=== PATIENT | female | born 1970 | race Caucasian/White ===

== ENCOUNTER 2016-12-07 20:32 | Observation (INO) | payer OTHER ==
[2016-12-07 20:58] LABS: BASOPHIL# 0.1 X 10^3uL (0.0-0.1); BASOPHILS 0.6 % (0.0-2.0); EOSINOPHILS# 0.1 X 10^3uL (0.0-0.4); HEMOGLOBIN 12.9 g/dL (12.0-16.0); LYMPHOCYTES 14.6 % (20.0-40.0); LYMPHOCYTES# 1.4 X 10^3uL (0.8-3.8); MEAN CELL VOLUME 82.1 fL (80.0-100.0); MEAN CORPUS. HGB CONCENTRATION 33.8 g/dL (32.0-36.0); MEAN CORPUSCULAR HEMOGLOBIN 27.8 pg (29.0-35.0); MEAN PLATELET VOLUME 8.1 fL (7.4-10.4); MONOCYTES 10.8 % (2.0-10.0); MONOCYTES# 1.1 X 10^3uL (0.2-1.0); NEUTROPHILS# 7.2 X 10^3uL (2.6-6.7); PLATELET COUNT 394 X 10^3uL (130-440); RED BLOOD COUNT 4.63 X 10^6uL (4.20-6.10); WHITE BLOOD COUNT 9.9 X 10^3uL (3.9-10.7)
[2016-12-07 21:01] LABS: BLOOD UREA NITROGEN 10 mg/dL (7-17); CALCIUM 8.8 mg/dL (8.4-10.2); CHLORIDE 99 mmol/L (98-107); EST GLOMERULAR FILTRATION RATE > 60 mL/min; GLUCOSE 97 mg/dL (70-100); POTASSIUM 3.9 mmol/L (3.5-5.1); SODIUM 135 mmol/L (137-145)
[2016-12-07] MEDS ORDERED: cefTRIAXone SODIUM 1,000 MG/10 ML VIAL ONE (21:01)
[2016-12-07] MEDS ORDERED: AZITHROMYCIN 250 MG TABLET PO ONE (21:02)
[2016-12-07] MEDS ORDERED: NORMAL SALINE 1,000 ML IV ONE (21:02)
[2016-12-07] MEDS ORDERED: IPRATROPIUM/ALBUTEROL 0.5/3 MG 3 ML AMPUL.NEB INHALATION ONE ×2 (21:02→22:36)
[2016-12-07] MEDS ORDERED: ACETAMINOPHEN 325 MG TABLET PO ONE (21:02)
[2016-12-07] MEDS ORDERED: IBUPROFEN 600 MG TABLET PO ONE (21:02)
[2016-12-07] MEDS ORDERED: NORMAL SALINE MINI-BAG+ 100 ML IV ONE (21:03)
[2016-12-07] MEDS ORDERED: SODIUM CHLORIDE 0.9% 3 ML VIAL.NEB INHALATION ONE (21:07)
--- NOTE | 2016-12-07 22:24 | CT REPORT ---
HISTORY: Shortness of breath. TECHNIQUE: This examination was performed using automated exposure control, adjustment of mA or kV according to patient size, and/or use of iterative reconstruction technique. Thin section axial CT images were obt ained through the chest and reformatted in coronal planes after the intravenous administration of 100 cc Isovue 300 contrast. Three-D reformatted images were created and viewed on a 3-D workstation. FINDINGS: There is no pulmonary embolus, lymphadenopathy, pneumothorax or pleural effusions. There is a large alveolar consolidation containing air bronchograms in the anterior inferior aspect o f the right upper lobe. There are numerous scattered smaller alveolar opacities throughout the remain naveen of the right upper lobe and the right lower lobe. There is a large 7.6 cm in diameter exophytic cyst extending off the lateral midportion of the right kidney. Septations within the cyst cannot be excluded. There are no adrenal masses. No osseous masses are identified. IMPRESSION: 1. No evidence of a pulmonary embolus. 2. Large right upper lobe pneumonia with scattered multifocal pneumonia throughout the right lung. F ollow-up PA and lateral chest radiograph recommended in one week to confirm improvement. 3. Large right renal cyst with possible septations. A renal ultrasound is recommended for further ev aluation. Final Electronic Signature: This report was electronically signed by Christopher Huynh MD on 017 10:22 PM. nataly /
[2016-12-07] MEDS ORDERED: HOME MEDICATION LIST NEEDED 1 EA EACH MISC ONE (22:48)
[2016-12-07] MEDS ORDERED: FAMOTIDINE 20 MG TABLET PO PRN (22:48)
[2016-12-07] MEDS ORDERED: ACETAMINOPHEN 325 MG TABLET PO PRN (22:48)
[2016-12-07] MEDS ORDERED: cefTRIAXone SODIUM 1,000 MG in NORMAL SALINE MINI-BAG+ 100 ML IV SCH (23:00)
[2016-12-07] MEDS ORDERED: NORMAL SALINE 1,000 ML IV SCH (23:00)
--- NOTE | 2016-12-08 00:20 | ER NURSING DOCUMENTATION ---
Nurse's Notes [facility] Name:Lety Navarro Age:46 yrs Sex:Female :1970 Arrival Date:12/07/2016 Time:20:32 Bed1 Private MD:Physician, No Diagnosis:Pneumonia Bacterial-: RUL due to probable Strep Pneumonia;Hypoxia-: Paroxysmal;Bronchospasm- Acute;Renal Cyst-: Right, large Presentation: 12/07 20:43 Acuity: NIEVES 2 rh 21:04 Presenting complaint: Patient states: Cough and chest discomfort. Transition of care: lp Home. 21:04 Method Of Arrival: Private Vehicle lp Triage Assessment: 21:06 General: Appears in no apparent distress, Behavior is appropriate for age. Pain: lp Complains of pain in anterior aspect of right upper chest Pain does not radiate. Pain currently is 5 out of 10 on a pain scale. EENT: No deficits noted. Neuro: No deficits noted. Cardiovascular: Heart tones S1 S2. Respiratory: Breath sounds with crackles bilaterally. Breath sounds are diminished in left posterior lower lobe, right posterior middle lobe and right posterior lower lobe Reports shortness of breath cough that is productive, persistent since 10 days ago Onset: The symptoms/episode began/occurred 10 -14 days ago, the patient has moderate shortness of breath. GI: No deficits noted. : No deficits noted. Derm: Historical: - Allergies: No known drug Allergies; - Home Meds: 1. Cheratussin AC 10-100 mg/5 mL oral liqd 2. Tessalon Perles 100 mg oral cap 1 cap 3 times per day for Cough - PMHx: Seasonal Allergies; - PSHx: None; - Tetanus: < 10 years. - Ebola Screening: : Patient negative for fever greater than or equal to 101.5 degrees Fahrenheit, and additional compatible Ebola Virus Disease symptoms. Patient denies exposure to infectious person. Patient denies travel to an Ebola-affected area in the 21 days before illness onset. . - Social history: Smoking status: Patient states was never smoker of tobacco. Smoking status: Patient states was never smoker of tobacco. - Immunization history: Pneumococcal vaccine status is unknown, Flu Vaccine < 1 year Flu Vaccine. Screenin:05 Infectious Disease Risk None. Abuse screen: Denies threats or abuse. Denies injuries rh from another. Nutritional screening: No deficits noted. Assessment: 21:08 Cardiovascular: Rhythm is regular. Respiratory: Airway Trachea midline Respiratory lp effort is even, labored, shallow, Respiratory pattern is regular, symmetrical, Sputum is thick, white Reports shortness of breath cough that is pain with cough Onset: The symptoms/episode began/occurred 10 days ago. Vital Signs: 20:40 BP 122 / 73; Pulse 99; Resp 18; Temp 100.8(TE); Pulse Ox 90% on R/A; Weight 56.7 kg; rh Height 5 ft. 3 in. (160.02 cm); Pain 5/10; 20:58 BP 128 / 69; Pulse 90; Resp 16; Pulse Ox 100% on Nebulizer; rh 22:01 BP 104 / 61; Pulse 109; Pulse Ox 89% on R/A; em1 12/08 00:18 BP 95 / 58; Pulse 74; Resp 20; Temp 97.9; Pulse Ox 95% on 2 lpm NC; Pain 0/10; lb 12/07 20:40 Body Mass Index 22.14 (56.70 kg, 160.02 cm) rh Mireya Coma Score: 12/07 21:20 Eye Response: spontaneous(4). Verbal Response: oriented(5). Motor Response: obeys cd commands(6). Total: 15. ED Course: 20:33 Patient arrived in ED. em2 20:33 Physician, No is Private Physician. em2 20:34 Mode Kyle MD is Attending Physician. cd 20:38 Port Xray Completed. luís 20:40 Inserted peripheral IV: 20 gauge in left antecubital area and blood collected. rh 20:43 Triage completed. rh 21:01 Valuables Remains with patient Patient has correct armband on for positive rh identification. Placed in gown. Bed in low position. Call light in reach. Side rails up X 1. Pulse ox on. NIBP on. 21:04 Yolanda Elizalde RN is Primary Nurse. lp 21:[address] luís 21:[address]. luís 22:45 Cody Haque MD is Admitting Physician. cd Administered Medications: 20:50 Drug: NS 0.9% 1000 ml; Route: IV; Rate: bolus; Site: left antecubital; rh 22:48 Follow up: IV Status: Completed infusion; IV Intake: 1000ml lb 20:50 Drug: Rocephin 1 grams; Route: IVPB; Site: left antecubital; rh 21:41 Follow up: IV Status: Completed infusion; IV Intake: 100ml rh 21:02 Drug: Acetaminophen 975 mg; Route: PO; rh 21:19 Follow up: Response: No adverse reaction rh 21:02 Drug: Ibuprofen 600 mg; Route: PO; rh 21:19 Follow up: Response: No adverse reaction rh 21:03 Drug: DuoNeb (Albuterol 2.5 mg, Atrovent 0.5 mg); 3 ml; Route: Nebulizer; rh 21:20 Follow up: Response: No adverse reaction rh 21:03 Drug: Zithromax 500 mg; Route: PO; rh 21:20 Follow up: Response: No adverse reaction rh 22:23 Drug: DuoNeb (Albuterol 2.5 mg, Atrovent 0.5 mg); 3 ml; Route: Nebulizer; rh 12/08 00:19 Follow up: Response: Wheezing diminished lb 12/07 22:48 Drug: NS 0.9% 1000 ml; Route: IV; Rate: 100 ml/hr; Site: left antecubital; lb 12/08 00:20 Follow up: IV Status: Infusion continued upon admission; IV Intake: 150ml lb Point of Care Testing: Urine Dip: 12/07 21:07 pH: 6.5; ; Specific [place]: 1.005; Ketones: Negative; Glucose: Negative; Protein: lp Negative; Leukocytes: Negative; Nitrite: Negative ; Blood: Negative; Bilirubin: Negative ; Urobilinogen: Normal Intake: 21:41 IV: 100ml; Total: 100ml. rh 22:48 IV: 1000ml; Total: 1100ml. lb 12/08 00:20 IV: 150ml; Total: 1250ml. lb Outcome: 12/07 22:47 Decision to Admit by Provider. cd 12/08 00:18 Admitted to Med/surg accompanied by nurse, via stretcher, with oxygen. lb Condition: stable Report given to Ac ALMEIDA Instructed on need to admit 00:20 Patient left the ED. lb Signatures: Yolanda Elizalde RN RN lp Daley, Chris, MD MD cd Abbott, Laura lea [employer], Sheilatech em1 Meinking-reg, Sheila-reg em2 Tanika, Triny rh Nayan, Melva lb
--- NOTE | 2016-12-08 00:20 | ER PHYSICIAN DOCUMENTATION ---
Physician Documentation [facility] Name:Lety Navarro Age:46 yrs Sex:Female :1970 Arrival Date:12/07/2016 Time:20:32 Bed1 Private MD:Physician, No ED Mode Delvalle Disposition: 12/07 22:45 Critical Care: not applicable. cd 23:00 Chart complete. cd Disposition: 12/07/16 22:47 Admit ordered for Cody Haque. Preliminary diagnosis are Pneumonia Bacterial - : RUL due to probable Strep Pneumonia, Hypoxia - : Paroxysmal, Bronchospasm- Acute, Renal Cyst - : Right, large. - Bed requested for Medical/Surgical. - Condition is Fair. - Problem is an ongoing problem. - Symptoms have improved. 23 HR OBS Yes HPI: 20:35 This 46 yrs old Female presents to ER via Private Vehicle with complaints of cd Shortness Of Breath, Cough and Chest Pain. 20:35 The patient has shortness of breath at rest, with light activity, that occurred at cd home, and the patient has a history of Acute Bronchitis dx'd at home before leaving for [place]. She was placed on Cough Syrup / Meds but no Antibiotics. She has been getting progressively worse over the past 5 - 7 days. She now has a very deep cough, shortness of breath and pleuritic chest pain with deep breaths.. Onset: The symptom(s)/episode began/occurred acutely, 5 day(s) ago, and became worse today. Duration: The symptoms are continuous, and are steadily getting worse. The patient's shortness of breath is aggravated by coughing, is alleviated by nothing. Associated signs and symptoms: Pertinent positives: chest pain, non-productive cough, Pertinent negatives: diaphoresis, dizziness, fever, vomiting. Severity of symptoms: At their worst the symptoms were moderate in the emergency department the symptoms are unchanged. Risk Factors The risk factors for pulmonary embolism include: This patient has been traveling recently. The patient has not experienced similar symptoms in the past. Historical: - Allergies: No known drug Allergies; - Home Meds: 1. Cheratussin AC 10-100 mg/5 mL oral liqd 2. Tessalon Perles 100 mg oral cap 1 cap 3 times per day for Cough - PMHx: Seasonal Allergies; - PSHx: None; - Tetanus: < 10 years. - Ebola Screening: : Patient negative for fever greater than or equal to 101.5 degrees Fahrenheit, and additional compatible Ebola Virus Disease symptoms. Patient denies exposure to infectious person. Patient denies travel to an Ebola-affected area in the 21 days before illness onset. . - Social history: Smoking status: Patient states was never smoker of tobacco. Smoking status: Patient states was never smoker of tobacco. - Immunization history: Pneumococcal vaccine status is unknown, Flu Vaccine < 1 year Flu Vaccine. ROS: 21:10 ENT: Negative for injury, pain, epistaxis and discharge. cd Neck: Negative for injury, pain, stiffness and swelling. Cardiovascular: Negative for chest pain, palpitations, edema and pleuritic pain. Abdomen/GI: Negative for abdominal pain, nausea, vomiting, diarrhea, constipation, distension, melena, hematochezia and hematemesis. Back: Negative for injury, pain or muscle spasms. MS/Extremity: Negative for injury, deformity, edema, calf tenderness, pain or coldness. Skin: Negative for injury, rash, itching and discoloration. 21:10 Neuro: Negative for headache, weakness, numbness, tingling, and seizure. cd 21:10 Constitutional: Positive for poor PO intake, Negative for chills, fever. 21:10 Respiratory: Positive for cough, with no reported sputum, dyspnea on exertion, pleurisy, shortness of breath, Negative for hemoptysis, orthopnea, wheezing. 21:10 All other systems are negative. Exam: Head/Face: Normocephalic, atraumatic. Eyes: Pupils equal round and reactive to light, extra-ocular motions intact. Lids and lashes normal. Conjunctiva and sclera are non-icteric and not injected. Cornea within normal limits. Periorbital areas with no swelling, redness, or edema. ENT: Nares patent. No nasal discharge, no septal abnormalities noted. Tympanic membranes are normal and external auditory canals are clear. Oropharynx with no redness, swelling, or masses, exudates, or evidence of obstruction, uvula midline. Mucous membranes dry Neck: Trachea midline, no thyromegaly or masses palpated, and no cervical lymphadenopathy. Supple, full range of motion without nuchal rigidity, or vertebral point tenderness. No Meningismus. Chest/axilla: Normal chest wall appearance and motion. Nontender with no deformity. No lesions are appreciated. Abdomen/GI: Soft, non-tender, with normal bowel sounds. No distension or tympany. No guarding or rebound. No evidence of tenderness throughout. Back: No spinal tenderness. No costovertebral tenderness. Full range of motion. Skin: Warm, dry with normal turgor. Normal color with no rashes, no lesions, and no evidence of cellulitis. MS/ Extremity: Pulses equal, no cyanosis. Neurovascular intact. Full, normal range of motion. 21:20 Neuro: Awake and alert, GCS 15, oriented to person, place, time, and situation. cd Cranial nerves II-XII grossly intact. Motor strength 5/5 in all extremities. Sensory grossly intact. Cerebellar exam normal. Normal gait. 21:20 Constitutional: The patient appears alert, awake, non-diaphoretic, non-toxic, well developed, well nourished, anxious, in obvious distress, moderately distressed. 21:20 Cardiovascular: Rate: normal, Rhythm: regular, Pulses: no pulse deficits are appreciated, Heart sounds: normal, Edema: is not appreciated. 21:20 Respiratory: the patient does not display signs of respiratory distress, Respirations: normal, no acute changes, Breath sounds: rales, that are moderate, are heard in the right posterior upper lobe, rhonchi, that are moderate, are heard in the right posterior upper lobe and right posterior middle lobe, wheezing, is not appreciated, bronchial sounds, are not appreciated. Vital Signs: 20:40 BP 122 / 73; Pulse 99; Resp 18; Temp 100.8(TE); Pulse Ox 90% on R/A; Weight 56.7 kg; rh Height 5 ft. 3 in. (160.02 cm); Pain 5/10; 20:58 BP 128 / 69; Pulse 90; Resp 16; Pulse Ox 100% on Nebulizer; rh 22:01 BP 104 / 61; Pulse 109; Pulse Ox 89% on R/A; em1 12/08 00:18 BP 95 / 58; Pulse 74; Resp 20; Temp 97.9; Pulse Ox 95% on 2 lpm NC; Pain 0/10; lb 12/07 20:40 Body Mass Index 22.14 (56.70 kg, 160.02 cm) rh Mireya Coma Score: 12/07 21:20 Eye Response: spontaneous(4). Verbal Response: oriented(5). Motor Response: obeys cd commands(6). Total: 15. MDM: 20:34 Patient medically screened. cd 21:00 Differential diagnosis: pneumonia, pulmonary edema, Pulmonary Embolism. Antibiotic cd administration: Rocephin and Zithromax given. 22:45 Data reviewed: vital signs, nurses notes, old medical records, lab test result(s), cd radiologic studies, CT scan, plain films, and as a result, I will admit patient, administer antibiotics Rocephin, Zithromax, administer IV fluids, NS bolus, NS maintenence, and a Duoneb treatment. Data interpreted: Pulse oximetry: on room air is 87 %. Interpretation: with coughing. Plan: will initiate a nebulizer treatment. 23:00 Counseling: I had a detailed discussion with the patient and/or guardian regarding: the cd historical points, exam findings, and any diagnostic results supporting the discharge/admit diagnosis, lab results, radiology results, the need for further work-up and treatment in the hospital, risk of leaving the Emergency Department. Response to treatment: the patient's symptoms have markedly improved after treatment, and as a result, I will admit patient. 12/07 21:02 Order name: CBC AUTO DIF, MDIF/RMOR IF IND; Complete Time: 22:31 EDNC 12/07 22:25 Interpretation: Normal. 12/07 21:04 Order name: BASIC METABOLIC PANEL; Complete Time: 22:31 EDNC 12/07 22:25 Interpretation: Normal. 12/07 21:05 Order name: LACTATE; Complete Time: 22:31 EDNC 12/07 22:25 Interpretation: Normal. 12/07 21:36 Order name: SPUTUM CULTURE AND GRAM STAIN; Complete Time: 00:13 EDNC 12/07 Interpretation: Abnormal: SPUTUM GRAM STAIN 3+ WHITE BLOOD CELLS; SPUTUM GRAM STAIN 2+ cd GRAM POSITIVE COCCI IN CHAINS; SPUTUM GRAM STAIN 3+ WHITE BLOOD CELLS; SPUTUM GRAM STAIN 2+ GRAM POSITIVE COCCI IN CHAINS. 12/08 07:28 Order name: CBC W/ MANUAL DIFFERENTIAL; Complete Time: 00:13 EDMS 12/08 07:30 Order name: BASIC METABOLIC PANEL; Complete Time: 00:13 EDNC 12/08 20:50 Order name: BLOOD CULTURE; Complete Time: 00:13 EDNC 12/08 20:50 Order name: BLOOD CULTURE; Complete Time: 00:13 EDMS 12/07 22:26 Order name: CAT SCAN; CHEST ANGIO [id number]; Complete Time: 00:13 EDMS 12/10 00:12 Interpretation: Abnormal: See Radiologist Reading. 12/08 09:09 Order name: CHEST; SINGLE VIEW [id number]; Complete Time: 00:13 EDMS 12/10 00:12 Interpretation: Abnormal: See Radiologist Reading. 12/08 09:44 Order name: US RETROPERITONEAL [id number]; Complete Time: 00:13 EDMS 12/07 20:35 Order name: I & O; Complete Time: 20:46 cd 12/07 20:35 Order name: Oxygen; Complete Time: 20:46 cd 12/07 20:35 Order name: Place Patient On Monitor; Complete Time: 20:46 cd 12/07 20:35 Order name: Pulse Ox Continuous; Complete Time: 20:46 cd Dispensed Medications: 20:50 Drug: NS 0.9% 1000 ml; Route: IV; Rate: bolus; Site: left antecubital; rh 22:48 Follow up: IV Status: Completed infusion; IV Intake: 1000ml lb 20:50 Drug: Rocephin 1 grams; Route: IVPB; Site: left antecubital; rh 21:41 Follow up: IV Status: Completed infusion; IV Intake: 100ml rh 21:02 Drug: Acetaminophen 975 mg; Route: PO; rh 21:19 Follow up: Response: No adverse reaction rh 21:02 Drug: Ibuprofen 600 mg; Route: PO; rh 21:19 Follow up: Response: No adverse reaction rh 21:03 Drug: DuoNeb (Albuterol 2.5 mg, Atrovent 0.5 mg); 3 ml; Route: Nebulizer; rh 21:20 Follow up: Response: No adverse reaction rh 21:03 Drug: Zithromax 500 mg; Route: PO; rh 21:20 Follow up: Response: No adverse reaction rh 22:23 Drug: DuoNeb (Albuterol 2.5 mg, Atrovent 0.5 mg); 3 ml; Route: Nebulizer; 12/08 00:19 Follow up: Response: Wheezing diminished lb 12/07 22:48 Drug: NS 0.9% 1000 ml; Route: IV; Rate: 100 ml/hr; Site: left antecubital; lb 12/08 00:20 Follow up: IV Status: Infusion continued upon admission; IV Intake: 150ml lb Point of Care Testing: Urine Dip: 12/07 21:07 pH: 6.5; ; Specific [place]: 1.005; Ketones: Negative; Glucose: Negative; Protein: lp Negative; Leukocytes: Negative; Nitrite: Negative ; Blood: Negative; Bilirubin: Negative ; Urobilinogen: Normal Signatures: Yolanda Elizalde RN RN lp Daley, Chris, MD MD cd Hofsess, Rachel Melva Spicer
[2016-12-08] MEDS ORDERED: O2 HUMIDIFIER 650 ML BOTTLE INHALATION ONE (01:11)
[2016-12-08] MEDS: GUAIFENESIN ER 600 MG TABLET PO SCH ×2 (01:27→10:36)
[2016-12-08] MEDS: IPRATROPIUM/ALBUTEROL 0.5/3 MG 3 ML AMPUL.NEB INHALATION SCH ×3 (01:28→09:24)
[2016-12-08 07:02] VITALS: BP 98/62; PULSE 87; RESP 18; TEMP 98.1
[2016-12-08 07:22] LABS: BLOOD UREA NITROGEN 7 mg/dL (7-17); CHLORIDE 106 mmol/L (98-107); EST GLOMERULAR FILTRATION RATE > 60 mL/min; GLUCOSE 105 mg/dL (70-100); POTASSIUM 3.4 mmol/L (3.5-5.1); SODIUM 139 mmol/L (137-145)
[2016-12-08 07:27] LABS: HEMATOCRIT 34.9 % (36.0-48.0); HEMOGLOBIN 11.5 g/dL (12.0-16.0); MEAN CELL VOLUME 82.6 fL (80.0-100.0); MEAN CORPUS. HGB CONCENTRATION 33.1 g/dL (32.0-36.0); MEAN CORPUSCULAR HEMOGLOBIN 27.3 pg (29.0-35.0); MEAN PLATELET VOLUME 7.5 fL (7.4-10.4); PLATELET COUNT 336 X 10^3uL (130-440); RED BLOOD COUNT 4.23 X 10^6uL (4.20-6.10); RED CELL DISTRIBUTION WIDTH 13.3 % (11.5-14.5); WHITE BLOOD COUNT 8.5 X 10^3uL (3.9-10.7)
[2016-12-08 08:14] LABS: BAND% (Manual) 3 % (0.0-1.0); EOSINOPHIL % (Manual) 1 % (0.0-6.0); LYMPHOCYTE % (Manual) 20 % (20.0-40.0); MONOCYTE % (Manual) 3 % (2.0-10.0); NEUTROPHIL % (Manual) 73 % (54.0-75.0); PLATELET ESTIMATE ADEQUATE
--- NOTE | 2016-12-08 08:24 | HISTORY & PHYSICAL ---
DATE OF ADMISSION: 12/08/16 ATTENDING PHYSICIAN: Cody Haque MD CHIEF COMPLAINT: Cough. HISTORY OF PRESENT ILLNESS: Patient is a 46-year-old female, visitor from [place] , who presents with a 1.5 week history of respiratory symptoms, that started while she was still in [place]. She has traveled to [place] and now is in [place] and symptoms have progressed. Also in [place], she had a fever with temperature 101.5 treated with Ibuprofen and a slight cough. Since then, she has had a persistent frequent nonproductive cough, headache, otalgia, chest discomfort especially on deep inspiration with a pleuritic sensation of the right upper lobe, dyspnea, chest tightness. No sinus pressure, coryza, sore throat, postnasal drainage, wheezing, pyrosis or aspiration. No previous history of pneumonia and no obvious exposures or risks factors. ALLERGIES: None. MEDICATIONS Meloxicam 7.5 mg p.o. daily PRN right backache. Flonase nasal inhaler PRN allergies. Cheratussin AC was prescribed in [place] for PRN cough. PAST MEDICAL HISTORY 1. Seasonal allergic rhinitis. 2. Slight right sided backache intermittently. SOCIAL HISTORY: , no children. 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 No smoking. No alcohol. FAMILY HISTORY: Father with bladder cancer. Maternal grandmother with heart disease. Paternal grandmother and paternal grandfather with vascular problems. REVIEW OF SYSTEMS: No heart, asthma, emphysema or other pulmonary problems, kidney problems, kidney stones or infections, liver, diabetes, thyroid, seizures , peptic ulcer disease, hypertension, hyperlipidemia, skin, allergy or bleeding disorders. No nocturia. No dysuria or urinary frequency, hematuria, etc. PREVENTATIVE HEALTH: Gets annual flu shot. Has never had a pneumonia shot. PHYSICAL EXAMINATION VITAL SIGNS: Vital signs are not available to me at this time but pulse oximetry was less than 90%, especially with cough. HEENT: EOMI. Pupils are equally round and reactive to light. Normal conjunctivae. TMs normal. No coryza. Nasopharynx normal. Pharynx not injected. Midline structures. NECK: No lymphadenopathy. No thyromegaly. No carotid bruits. CHEST: Clear. No rales, rhonchi or wheezes. Good breath sounds and symmetry throughout. No rales or diminished breath sounds in the right upper lobe at the time of my exam. COR: RRR without murmurs, gallops, rubs or clicks. No jugular venous distention. No ectopy. ABDOMEN: Soft, nontender. No hepatosplenomegaly. No masses. No bruits. No inguinal nodes. Bowel sounds present. LOWER EXTREMITIES: No edema. Good peripheral pulses. Negative Homans sign. No calf tenderness. NEUROLOGIC: Nonfocal. X-RAY: Chest x-ray shows a right upper lobe infiltrate. IMAGING: Chest CT scan shows a dense right upper lobe infiltrate consistent with pneumonia. No pulmonary embolism, cancer or other masses. Incidentally, there is also a large right complex renal cyst with septi for which further workup is recommended. LABORATORY DATA: White blood cell count 9.9, hemoglobin and hematocrit 12.9/38.0 , platelets 394,000, sodium 135, potassium 3.9, chloride 99, CO2 27, glucose 97 , BUN 10, creatinine 0.9. Sputum shows white blood cell counts, 2+ gram positive cocci and chains. Sputum culture and blood culture are pending. ASSESSMENT 1. Right upper lobe pneumonia with associated hypoxia. 2. Large complex right middle cyst with septi. PLAN 1. Rocephin 1 gram IV q.24 hours and Z-pack. 2. Mucinex 1200 mg p.o. b.i.d. 3. Duoneb nebulizer treatment q.4 hours. 4. IV hydration. 5. Consider steroids. 6. Sputum and blood cultures pending. 7. Respiratory therapy consult. 8. Right renal ultrasound. 9. Oxygen, incentive spirometry. MTDD
--- NOTE | 2016-12-08 08:48 | RADIOLOGY REPORT ---
A limited single portable view of the chest, without prior films for comparison , demonstrates indeterminate 4 cm opacification in the right suprahilar region. Infiltrate versus mass. The lung hunt are otherwise clear. The heart and vessels are otherwise unremarkable. IMPRESSION: Indeterminate right suprahilar opacification. Please see CT scan of the same date. MTDD
[2016-12-08] MEDS ORDERED: AZITHROMYCIN 250 MG TABLET PO SCH (09:00)
[2016-12-08 09:25] VITALS: O2SAT 93
[2016-12-08] MEDS ORDERED: cefTRIAXone SODIUM 1,000 MG in NORMAL SALINE MINI-BAG+ 100 ML IV SCH (09:30)
--- NOTE | 2016-12-08 09:42 | US REPORT ---
HISTORY: Evaluate right renal complex cyst seen on CT COMPARISON: CT chest 12/07/2016 TECHNIQUE: Sonographic imaging of the kidneys FINDINGS: Right kidney measures 12.7 x 7.4 x 7.9 cm. There is a complex partially exophytic solid and cystic se ptated mass along the peripheral right kidney extending from the upper pole to the lower interpolar m argin measuring approximately 8 x 7.4 x 5.7 cm. Findings concerning for neoplasm and further characte rization with dynamic enhanced MRI or CT of the kidneys recommended. The left kidney measures 10.1 x 5.2 x 4.7 cm without hydronephrosis or mass. The urinary bladder is unremarkable. IMPRESSION: Solid and cystic mass of the right kidney measuring 8 x 7.4 x 5.7 cm. 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 Further characterization with dynamic enhanced MRI or dynamic enhanced CT of the kidneys recom mended. Final Electronic Signature: This report was electronically signed by Gen Shana MD on 12/08/2016 9: 40 AM. ana laura /
--- NOTE | 2016-12-08 10:51 | PROGRESS NOTE: IM SOAP ---
IM: PN Subjective Interval history: Respiratory symptoms are improving, but persist dry cough. No F/C. No CP or renal symptoms. IM: PN Objective Exam - I&O/Vital Signs I&O: Intake & Output 12/07/16 12/08/16 12/08/16 21:59 05:59 13:59 Intake Total 1188 240 Output Total 600 Balance 588 240 Weight 58.287 kg Intake: IV 388 Left Antecubital 388 Oral 800 240 Output: Urine 600 Other: Voiding Method Toilet Vital Signs: Last Vital Signs Temp 36.7 C 12/08/16 07:00 Pulse 87 12/08/16 07:00 Resp 18 12/08/16 09:00 BP 98/62 12/08/16 07:00 Pulse Ox 93 12/08/16 09:25 Oxygen Flow Rate 2 Oxygen Delivery Method Room Air - Neck Neck exam: Absent: lymphadenopathy, thyromegaly - Respiratory Respiratory exam: Present: clear. Absent: rales, rhonchi, wheezes - Cardiovascular Cardiovascular exam: Present: RRR. Absent: systolic murmur - GI/Abdominal GI/Abdominal exam: Present: soft. Absent: tenderness - Extremities Exam Extremities exam: Absent: edema - Lab Labs: Laboratory Last Values WBC 8.5 X 10^3uL (3.9-10.7) 12/08/16 06:55 RBC 4.23 X 10^6uL (4.20-6.10) 12/08/16 06:55 Hgb 11.5 g/dL (12.0-16.0) L 12/08/16 06:55 Hct 34.9 % (36.0-48.0) L 12/08/16 06:55 MCV 82.6 fL (80.0-100.0) 12/08/16 06:55 MCH 27.3 pg (29.0-35.0) L 12/08/16 06:55 MCHC 33.1 g/dL (32.0-36.0) 12/08/16 06:55 RDW 13.3 % (11.5-14.5) 12/08/16 06:55 Plt Count 336 X 10^3uL (130-440) 12/08/16 06:55 MPV 7.5 fL (7.4-10.4) 12/08/16 06:55 Total Counted 100 12/08/16 06:55 Neutrophils % 73.0 % (54.0-75.0) 12/07/16 20:36 Neutrophils % (Manual) 73 % (54.0-75.0) 12/08/16 06:55 Band Neuts % (Manual) 3 % (0.0-1.0) H 12/08/16 06:55 Lymphocytes % 14.6 % (20.0-40.0) L 12/07/16 20:36 Lymphocytes % (Manual) 20 % (20.0-40.0) 12/08/16 06:55 Atypical Lymphs % (Man) 0 % 12/08/16 06:55 Monocytes % (Manual) 3 % (2.0-10.0) 12/08/16 06:55 Eosinophils % 1.0 % (0.0-6.0) 12/07/16 20:36 Eosinophils % (Manual) 1 % (0.0-6.0) 12/08/16 06:55 Basophils % 0.6 % (0.0-2.0) 12/07/16 20:36 Neutrophils # 7.2 X 10^3uL (2.6-6.7) H 12/07/16 20:36 Lymphocytes # 1.4 X 10^3uL (0.8-3.8) 12/07/16 20:36 Monocytes 10.8 % (2.0-10.0) H 12/07/16 20:36 Monocytes # 1.1 X 10^3uL (0.2-1.0) H 12/07/16 20:36 Eosinophils # 0.1 X 10^3uL (0.0-0.4) 12/07/16 20:36 Basophils # 0.1 X 10^3uL (0.0-0.1) 12/07/16 20:36 Platelet Estimate Adequate 12/08/16 06:55 Sodium 139 mmol/L (137-145) 12/08/16 06:55 Potassium 3.4 mmol/L (3.5-5.1) L 12/08/16 06:55 Chloride 106 mmol/L (98-107) 12/08/16 06:55 Carbon Dioxide 26 mmol/L (22-30) 12/08/16 06:55 BUN 7 mg/dL (7-17) 12/08/16 06:55 Creatinine 0.8 mg/dL (0.5-1.0) 12/08/16 06:55 GFR Calculation > 60 mL/min 12/08/16 06:55 Glucose 105 mg/dL (70-100) H 12/08/16 06:55 Lactic Acid 1.0 mmol/L (0.7-2.1) 12/07/16 20:36 Calcium 8.0 mg/dL (8.4-10.2) L 12/08/16 06:55 Assessment and Plan - Date of Encounter Date of Encounter: 12/08/16 (1) Pneumonia Status: Acute Assessment and plan: Tong Nuno mucinex, Duoneb nebs Now on RA D/C home with follow up with PCP Tuesday for recheck Current Visit: Yes (2) Hypoxia Status: Acute Current Visit: Yes (3) Complex renal cyst Status: Acute Assessment and plan: Concerning for possible neoplasm and needs urology work up. Pt notified and given copy of report. Current Visit: Yes - Time Spent With Patient Total time spent with greater than 50% in coordination of care (as documented) at patient's floor/unit and/or counseling patient: Quality Questions - VTE Prophylaxis Assessment VTE Present on Admission?: No Patient at risk for venous thromboembolism?: No VTE Risk Level: Very Low Risk Pharmaceutical VTE prophylaxis contraindication reason: not indicated Mechanical VTE prophylaxis contraindication reason: not indicated
--- NOTE | 2016-12-08 18:38 | DISCHARGE SUMMARY ---
DATE OF ADMISSION: 12/07/16 DATE OF DISCHARGE: 12/08/16 ATTENDING PHYSICIAN: Cody Haque MD DIAGNOSES 1. Right upper lobe pneumonia. 2. Hypoxia, improved. 3. Large complex right renal cyst. HISTORY OF PRESENT ILLNESS: Patient is a 46-year-old female, visitor from [place] , who presented with a 1.5 week history of respiratory symptoms, that started while she was still in [place]. She had traveled to [place] and now is in [place] and symptoms have progressed. Also in [place], she had a fever with temperature 101.5 treated with Ibuprofen and a slight cough. Since then, she has had a persistent frequent nonproductive cough, headache, otalgia, chest discomfort especially on deep inspiration with a pleuritic sensation of the right upper lobe, dyspnea and chest tightness. No sinus pressure, coryza, sore throat, postnasal drainage, wheezing, pyrosis or aspiration. No previous history of pneumonia and no obvious exposures or risks factors. She was having no hematuria, dysuria, urinary frequency or other renal issues. Please see previously dictated history and physical for further details. HOSPITAL COURSE: Patient was admitted with right upper lobe pneumonia noted on both chest x-ray and chest CT scan. Patient was started on Rocephin 1 gram IV q.24 hours and a Z-pack, along with Mucinex 1200 mg p.o. b.i.d., Duoneb nebulizer treatments q.4 hours and IV hydration. Sputum and blood cultures are pending at this time, but are consistent with pneumococcus. By the next day, hypoxia had improved to the point that she was on room air and respiratory symptoms had sufficiently improved that she felt ready to be discharged. In addition, we obtained a renal ultrasound which showed a solid and cystic mass of the right kidney measuring 8 x 7.4 x 5.7 cm, with septi, consistent with a complex renal cyst. Further urologic evaluation was recommended. I gave patient a copy of her ultrasound report to help expedite referral and patient's copies of all x-rays, CT scans and ultrasounds on a disk as well. DISCHARGE INSTRUCTIONS: Patient may participate in activities as able and she will be on a regular diet. [place], and will arrive back in [place] tomorrow. She has a follow up appointment with her primary care physician on Tuesday. I have recommended a repeat chest x-ray in 1 month to confirm resolution of the pneumonia, and that there is nothing hiding behind the shadow on x-ray. She will have her primary care physician refer her to Urology to further evaluate her complex renal cyst. She is aware of the possibility of cancer. DISCHARGE MEDICATIONS Levaquin 750 mg p.o. daily x5 days. Mucinex 1200 mg p.o. b.i.d. ProAir HFA inhaler 2 puffs q.4 hours. Zyrtec 10 mg p.o. daily. Fluticasone nasal inhaler 2 sprays each nostril daily. Meloxicam 7.5 mg p.o. daily PRN back ache, (note that this is the same location as the right renal cyst). MTDD
[2017-01-11 10:27] LABS: NIL (NEG) CONTROL SPOT COUNT 1; PANEL A SPOT COUNT 1; PANEL B SPOT COUNT 2; TSPOT TEST NEGATIVE
== END 2016-12-08 11:35 | disposition home or self-care (01) ==
LOC: ER 20:32 → IN 12-08 00:09
PROVIDERS: ADMIT Family Medicine; ATTEND Family Medicine
DX: J15.8 Pneumonia due to other specified bacteria (principal); J30.2 Other seasonal allergic rhinitis; M54.89 Other dorsalgia
CPT/HCPCS: 36415; 71010; 71275; 76775; 80048; 83605; 85007; 85025; 85027; 86481; 87040; 87070; 87205; 94640; 96361; 96365; 96366; 99285; E0555; G0378; J0696; J7030; J7620; Q0144